=== PATIENT | male | born 1940 | race Caucasian/White ===

== ENCOUNTER 2017-03-17 02:57 | Emergency (ER) | payer OTHER ==
[~2017-03-17] VITALS: Ht 175.3 cm; Wt 74.8 kg
[~2017-03-17 02:57] MED LIST: ASPI-621 PO; ASPI325T4 PO; ATOR20TA PO; CARV6.2512 PO; ISOS30TA8 PO; TICA90TA PO
[2017-03-17 04:30] VITALS: BP 134/59
[2017-03-17] MEDS ORDERED: HYDROcodone/APAP 5/325 TABLET PO PRN (05:00)
[2017-03-17] MEDS ORDERED: HYDROcodone/APAP 5/325 TABLET ONE (05:03)
== END 2017-03-17 05:13 | disposition home or self-care (01) ==
LOC: ED 05:00
DX: M13.111 Monoarthritis, not elsewhere classified, right shoulder (principal)
CPT/HCPCS: 93005; 99284